=== PATIENT | female | born 1980 | race Caucasian/White ===

== ENCOUNTER 2025-01-16 10:06 | Emergency (ER) | payer SELFPAY ==
[2025-01-16] MEDS ORDERED: predniSONE 20 MG TAB ONE (10:35)
== END 2025-01-16 11:05 | disposition home or self-care (01) ==
LOC: BURERS 10:06
DX: J20.9 Acute bronchitis, unspecified (principal); J45.909 Unspecified asthma, uncomplicated; Z79.51 Long term (current) use of inhaled steroids
CPT/HCPCS: 71046; J7512